=== PATIENT | female | born 1990 | race Caucasian/White ===

== ENCOUNTER 2016-11-20 | Observation (INO) | payer BC ==
[2016-11-20] MEDS ORDERED: PRENA1 CHEW TA1.4 M1 PO (20:44)
[2016-11-20] MEDS ORDERED: PRENATAL VITAM1 EA11 PO (21:50)
== END 2016-11-21 00:23 ==
DX: O46.92 Antepartum hemorrhage, unspecified, second trimester (principal); Z3A.26 26 weeks gestation of pregnancy; Z88.0 Allergy status to penicillin; Z88.1 Allergy status to other antibiotic agents